=== PATIENT | male | born 1970 | race Caucasian/White ===

== ENCOUNTER 2021-11-01 03:10 | Inpatient (IN) ==
[2021-11-01] MEDS ORDERED: Naloxone 0.4 MG/ML INJ IVP PRN ×2 (05:51→06:00)
[2021-11-01 06:35] LABS: ABG Base Excess -15 mEq/L (-2 to 3); ABG HCO3 8 mEq/L (21-27); ABG Oxygen Saturation 97 % (95-98); ABG PCO2 17 mmHg (35-45); ABG PH 7.31 pH Units (7.32-7.45); ABG PO2 94 mmHg (85-104); ABG TCO2 9 mEq/L (20-26)
[2021-11-01] MEDS ORDERED: *HR* LORazepam 2 MG/ML VIAL IVP PRN (07:16)
[2021-11-01] MEDS: *HR* LORazepam 2 MG/ML VIAL IVP PRN ×6 (07:39→23:13)
[2021-11-01 09:44] LABS: Sodium, Urine 54.7 mEq/L
[2021-11-01 10:06] LABS: VBG Ionized Calcium 0.83 mmol/L (1.15-1.35)
[2021-11-01 10:09] LABS: Basophils % 0.1 %; Eosinophils % 0.1 %; Hematocrit 45.2 % (37.5-50.1); Hemoglobin 15.6 g/dL (12.9-16.9); Immature Granulocytes % 0.5 % (0-4); Lymphocytes % 11.1 %; Mean Corpuscular HGB Conc 34.5 g/dL (31.6-35.5); Mean Corpuscular Hemoglobin 28.1 pg (28.0-33.3); Mean Corpuscular Volume 81.3 fL (83.0-100.0); Monocytes # 1.3 K/mcL (0.0-1.3); Monocytes % 15.3 %; Neutrophils # 6.3 K/mcL (1.6-8.9); Platelet Count 281 K/mcL (140-400); Red Blood Count 5.56 M/mcL (4.19-5.50); Red Cell Distribution Width 15.5 % (11.5-14.5); Segmented Neutrophils % 72.9 %; White Blood Count 8.6 K/mcL (4.3-11.1)
[2021-11-01 10:26] LABS: Acetaminophen < 10 mcg/mL (10-20); Amylase 51 Units/L (29-103); INR 1.2; Lactate Dehydrogenase 107 Units/L (140-271); Lipase 117 Units/L (11-82); Prothrombin Time 12.9 Seconds (9.4-12.1); Troponin I < 0.03 ng/mL (< 0.04)
[2021-11-01 10:42] LABS: Alanine Aminotransferase 15 Units/L (7-52); Albumin 3.3 g/dL (3.5-5.7); Albumin/Globulin Ratio 1.3 (1.1-2.2); Alkaline Phosphatase 54 Units/L (34-104); Aspartate Amino Transferase 8 Units/L (13-39); Bilirubin,Direct 0.1 mg/dL (0.0-0.2); Bilirubin,Indirect 0.5 mg/dL (0.0-1.0); Bilirubin,Total 0.6 mg/dL (0.3-1.0); Blood Urea Nitrogen > 130 mg/dL (6-20); C-Reactive Protein 19 mg/L (Less than 10); Calcium 6.7 mg/dL (8.6-10.3); Carbon Dioxide 11 mEq/L (23-29); Chloride 111 mEq/L (98-107); Creatine Kinase 96 Units/L (30-223); Globulin 2.5 g/dL (2.4-3.5); Glucose 105 mg/dL (70-105); Magnesium 2.5 mg/dL (1.6-2.6); Potassium 3.7 mEq/L (3.5-5.1); Sodium 142 mEq/L (136-145); Total Protein 5.8 g/dL (6.4-8.9); Triglycerides 264 mg/dL (< 150); eGFR For African Americans 5 (> 60); eGFR For Non-African Americans 4 (> 60)
[2021-11-01] MEDS: Calcium Gluconate 1gm/50mL 1 GM/50 ML BAG IVPB SCH ×3 (11:49→13:36)
[2021-11-01 11:58] LABS: Complement C3 105 mg/dL (87-200)
[2021-11-01] MEDS: Sodium Bicarbonate 150 MEQ in D5% in Water 1,000 ML IVC SCH ×2 (13:38→19:55)
[2021-11-01 15:13] LABS: VBG Ionized Calcium 0.94 mmol/L (1.15-1.35)
[2021-11-01 15:33] LABS: Magnesium 2.3 mg/dL (1.6-2.6); Phosphorous 6.6 mg/dL (2.7-4.5); Potassium 3.6 mEq/L (3.5-5.1)
[2021-11-01] MEDS: Thiamine (B-1) 100 MG, Folic Acid 1 MG, MVI, adult with vitamin K 10 ML in 0.9 % Sodi... IVPB SCH (18:22)
[2021-11-01 23:12] LABS: VBG Ionized Calcium 0.95 mmol/L (1.15-1.35)
[2021-11-01 23:29] LABS: Calcium 7.4 mg/dL (8.6-10.3); Magnesium 2.2 mg/dL (1.6-2.6); Phosphorous 4.1 mg/dL (2.7-4.5); Potassium 3.6 mEq/L (3.5-5.1)
[2021-11-02] MEDS: Sodium Bicarbonate 150 MEQ in D5% in Water 1,000 ML IVC SCH
[2021-11-02] MEDS: *HR* LORazepam 2 MG/ML VIAL IVP PRN ×9 (01:48→20:34)
[2021-11-02 07:17] LABS: VBG Ionized Calcium 0.98 mmol/L (1.15-1.35)
[2021-11-02 07:29] LABS: Basophils % 0.1 %; Eosinophils % 0.1 %; Hematocrit 45.4 % (37.5-50.1); Hemoglobin 15.7 g/dL (12.9-16.9); Immature Granulocytes % 0.7 % (0-4); Lymphocytes # 0.7 K/mcL (0.6-4.6); Lymphocytes % 8.6 %; Mean Corpuscular HGB Conc 34.6 g/dL (31.6-35.5); Mean Corpuscular Hemoglobin 28.4 pg (28.0-33.3); Mean Corpuscular Volume 82.2 fL (83.0-100.0); Mean Platelet Volume 10.1 fL (9.4-12.4); Monocytes # 1.5 K/mcL (0.0-1.3); Monocytes % 17.4 %; Neutrophils # 6.3 K/mcL (1.6-8.9); Platelet Count 304 K/mcL (140-400); Red Blood Count 5.52 M/mcL (4.19-5.50); Red Cell Distribution Width 14.7 % (11.5-14.5); Segmented Neutrophils % 73.1 %; White Blood Count 8.6 K/mcL (4.3-11.1)
[2021-11-02] MEDS ORDERED: Famotidine 20 MG TABLET PO SCH (09:30)
[2021-11-02 10:06] LABS: Calcium 7.6 mg/dL (8.6-10.3); Magnesium 2.2 mg/dL (1.6-2.6); Phosphorous 3.8 mg/dL (2.7-4.5); Potassium 3.4 mEq/L (3.5-5.1)
[2021-11-02] MEDS ORDERED: D5% in 0.45% NACL 1,000 ML IVC SCH (10:45)
[2021-11-02] MEDS: *HR* Heparin 5,000 UNIT/ML VIAL SQ SCH ×2 (11:53→17:32)
[2021-11-02 12:01] LABS: ABG Base Excess 7 mEq/L (-2 to 3); ABG HCO3 30 mEq/L (21-27); ABG Oxygen Saturation 95 % (95-98); ABG PCO2 38 mmHg (35-45); ABG PH 7.51 pH Units (7.32-7.45); ABG PO2 68 mmHg (85-104); ABG TCO2 31 mEq/L (20-26)
[2021-11-02] MEDS: Thiamine (B-1) 100 MG, Folic Acid 1 MG, MVI, adult with vitamin K 10 ML in 0.9 % Sodi... IVPB SCH (17:32)
[2021-11-02 17:36] LABS: VBG Ionized Calcium 0.95 mmol/L (1.15-1.35)
[2021-11-02 17:41] LABS: Calcium 7.7 mg/dL (8.6-10.3); Magnesium 2.4 mg/dL (1.6-2.6); Phosphorous 2.9 mg/dL (2.7-4.5); Potassium 3.7 mEq/L (3.5-5.1)
[2021-11-02] MEDS ORDERED: Naloxone 0.4 MG/ML INJ IVP PRN (18:53)
[2021-11-02] MEDS: D5% in 0.45% NACL 1,000 ML IVC SCH (20:35)
[2021-11-02 22:37] LABS: BUN/Creatinine Ratio 40 (6-26); Blood Urea Nitrogen 59 mg/dL (6-20); Calcium 7.4 mg/dL (8.6-10.3); Carbon Dioxide 28 mEq/L (23-29); Chloride 120 mEq/L (98-107); Glucose 111 mg/dL (70-105); Osmolality,Calculated 335 (280-300); Potassium 3.4 mEq/L (3.5-5.1); Sodium 154 mEq/L (136-145); eGFR For African Americans > 60 (> 60); eGFR For Non-African Americans 51 (> 60)
[2021-11-03] MEDS: *HR* LORazepam 2 MG/ML VIAL IVP PRN ×7 (00:15→23:58)
[2021-11-03 01:33] LABS: Basophils % 0.1 %; Eosinophils # 0.1 K/mcL (0.0-0.6); Eosinophils % 0.7 %; Hematocrit 44.8 % (37.5-50.1); Hemoglobin 14.8 g/dL (12.9-16.9); Immature Granulocytes % 0.7 % (0-4); Lymphocytes # 0.9 K/mcL (0.6-4.6); Mean Corpuscular Volume 84.8 fL (83.0-100.0); Mean Platelet Volume 10.1 fL (9.4-12.4); Monocytes # 1.4 K/mcL (0.0-1.3); Monocytes % 18.6 %; Neutrophils # 5.2 K/mcL (1.6-8.9); Platelet Count 271 K/mcL (140-400); Red Blood Count 5.28 M/mcL (4.19-5.50); Red Cell Distribution Width 14.6 % (11.5-14.5); Segmented Neutrophils % 67.9 %; White Blood Count 7.7 K/mcL (4.3-11.1)
[2021-11-03 02:43] LABS: Platelet Estimate Normal (Normal); Reactive Lymphocytes Present (Not Present); Target Cells 1+ (Not Present)
[2021-11-03] MEDS: *HR* Heparin 5,000 UNIT/ML VIAL SQ SCH ×2 (05:38→17:23)
[2021-11-03] MEDS: lisinopriL 5 MG TABLET PO SCH (07:45)
[2021-11-03] MEDS: Famotidine 20 MG TABLET PO SCH (07:45)
[2021-11-03] MEDS: D5% in 0.45% NACL 1,000 ML IVC SCH (08:30)
[2021-11-03] MEDS ORDERED: lisinopriL 5 MG TABLET PO SCH (09:00)
[2021-11-03 12:07] LABS: BUN/Creatinine Ratio 32 (6-26); Blood Urea Nitrogen 37 mg/dL (6-20); Calcium 7.6 mg/dL (8.6-10.3); Carbon Dioxide 30 mEq/L (23-29); Chloride 125 mEq/L (98-107); Glucose 108 mg/dL (70-105); Osmolality,Calculated 337 (280-300); Potassium 3.6 mEq/L (3.5-5.1); Sodium 159 mEq/L (136-145); eGFR For African Americans > 60 (> 60); eGFR For Non-African Americans > 60 (> 60)
[2021-11-03] MEDS ORDERED: Thiamine (B-1) 100 MG in 0.9 % Sodium Chloride 50 ML IVPB ONE (12:19)
[2021-11-03] MEDS ORDERED: Folic Acid 1 MG in 0.9 % Sodium Chloride 50 ML IVPB ONE (12:19)
[2021-11-03] MEDS: D5% in Water 1,000 ML IVC SCH (14:10)
[2021-11-03] MEDS ORDERED: Thiamine (B-1) 100 MG, Folic Acid 1 MG, MVI, adult with vitamin K 10 ML in 0.9 % Sodi... IVPB SCH (18:00)
[2021-11-04] MEDS: D5% in Water 1,000 ML IVC SCH ×4 (02:10→23:01)
[2021-11-04 04:43] LABS: Basophils % 0.1 %; Eosinophils # 0.1 K/mcL (0.0-0.6); Eosinophils % 0.8 %; Hemoglobin 13.5 g/dL (12.9-16.9); Immature Granulocytes % 0.5 % (0-4); Lymphocytes # 1.3 K/mcL (0.6-4.6); Lymphocytes % 14.4 %; Mean Corpuscular HGB Conc 32.1 g/dL (31.6-35.5); Mean Corpuscular Hemoglobin 27.8 pg (28.0-33.3); Mean Corpuscular Volume 86.6 fL (83.0-100.0); Mean Platelet Volume 10.2 fL (9.4-12.4); Monocytes # 1.1 K/mcL (0.0-1.3); Monocytes % 11.7 %; Neutrophils # 6.7 K/mcL (1.6-8.9); Platelet Count 259 K/mcL (140-400); Red Blood Count 4.85 M/mcL (4.19-5.50); Red Cell Distribution Width 14.6 % (11.5-14.5); Segmented Neutrophils % 72.5 %; White Blood Count 9.3 K/mcL (4.3-11.1)
[2021-11-04] MEDS: *HR* Heparin 5,000 UNIT/ML VIAL SQ SCH ×2 (05:23→18:36)
[2021-11-04] MEDS: *HR* LORazepam 2 MG/ML VIAL IVP PRN (05:23)
[2021-11-04 06:36] LABS: BUN/Creatinine Ratio 22 (6-26); Blood Urea Nitrogen 22 mg/dL (6-20); Calcium 7.3 mg/dL (8.6-10.3); Carbon Dioxide 27 mEq/L (23-29); Chloride 116 mEq/L (98-107); Glucose 110 mg/dL (70-105); Magnesium 1.9 mg/dL (1.6-2.6); Osmolality,Calculated 314 (280-300); Phosphorous 1.5 mg/dL (2.7-4.5); Potassium 3.4 mEq/L (3.5-5.1); Sodium 150 mEq/L (136-145); eGFR For African Americans > 60 (> 60); eGFR For Non-African Americans > 60 (> 60)
[2021-11-04] MEDS: lisinopriL 5 MG TABLET PO SCH (09:01)
[2021-11-04] MEDS: Famotidine 20 MG TABLET PO SCH (09:01)
[2021-11-04 10:09] LABS: ANA IgG by ELISA NONE DETECTED (None Detected)
[2021-11-04 17:10] LABS: BUN/Creatinine Ratio 14 (6-26); Blood Urea Nitrogen 16 mg/dL (6-20); Calcium 7.4 mg/dL (8.6-10.3); Carbon Dioxide 28 mEq/L (23-29); Chloride 112 mEq/L (98-107); Glucose 123 mg/dL (70-105); Osmolality,Calculated 305 (280-300); Potassium 3.5 mEq/L (3.5-5.1); Sodium 146 mEq/L (136-145); eGFR For African Americans > 60 (> 60); eGFR For Non-African Americans > 60 (> 60)
[2021-11-04] MEDS: Thiamine (B-1) 100 MG TABLET PO SCH (18:36)
[2021-11-04 22:44] LABS: ANCA IFA Titer <1:20 (<1:20)
[2021-11-05 04:48] LABS: Alpha 2 Globulin (PEP) 0.98 g/dL (0.48-1.05); Beta Globulin (PEP) 0.52 g/dL (0.48-1.10)
[2021-11-05] MEDS: *HR* Heparin 5,000 UNIT/ML VIAL SQ SCH ×2 (05:32→16:54)
[2021-11-05] MEDS: Prenatal Vit/FA 1 EACH TABLET PO SCH (08:30)
[2021-11-05] MEDS: Thiamine (B-1) 100 MG TABLET PO SCH (08:30)
[2021-11-05] MEDS: lisinopriL 5 MG TABLET PO SCH (08:30)
[2021-11-05] MEDS: Famotidine 20 MG TABLET PO SCH (08:30)
[2021-11-05] MEDS: D5% in Water 1,000 ML IVC SCH (08:34)
[2021-11-05 08:46] LABS: ANCA IFA Pattern NONE DETECTED (None Detected); Serine Protease-3 Antibody 2 AU/mL (0-19)
[2021-11-05 08:49] LABS: IFE Reflexed NOT DONE
[2021-11-05] MEDS ORDERED: D5% in Water 1,000 ML IVC SCH (09:45)
[2021-11-05 09:54] LABS: Basophils % 0.2 %; Eosinophils # 0.1 K/mcL (0.0-0.6); Eosinophils % 0.7 %; Hematocrit 45.2 % (37.5-50.1); Hemoglobin 14.5 g/dL (12.9-16.9); Immature Granulocytes % 0.5 % (0-4); Lymphocytes # 1.3 K/mcL (0.6-4.6); Lymphocytes % 11.6 %; Mean Corpuscular HGB Conc 32.1 g/dL (31.6-35.5); Mean Corpuscular Hemoglobin 27.7 pg (28.0-33.3); Mean Corpuscular Volume 86.4 fL (83.0-100.0); Mean Platelet Volume 10.3 fL (9.4-12.4); Monocytes # 0.9 K/mcL (0.0-1.3); Monocytes % 8.3 %; Neutrophils # 8.7 K/mcL (1.6-8.9); Platelet Count 235 K/mcL (140-400); Red Blood Count 5.23 M/mcL (4.19-5.50); Red Cell Distribution Width 13.9 % (11.5-14.5); Segmented Neutrophils % 78.7 %
[2021-11-05 11:04] LABS: BUN/Creatinine Ratio 12 (6-26); Blood Urea Nitrogen 10 mg/dL (6-20); Calcium 7.4 mg/dL (8.6-10.3); Carbon Dioxide 28 mEq/L (23-29); Chloride 107 mEq/L (98-107); Glucose 102 mg/dL (70-105); Osmolality,Calculated 287 (280-300); Potassium 3.3 mEq/L (3.5-5.1); Sodium 139 mEq/L (136-145); eGFR For African Americans > 60 (> 60); eGFR For Non-African Americans > 60 (> 60)
[2021-11-05] MEDS ORDERED: Potassium Phosphate 44 MEQ in 0.9 % Sodium Chloride 250 ML IVPB ONE (15:00)
[2021-11-06 04:28] VITALS: BP 164/93
[2021-11-06] MEDS: *HR* Heparin 5,000 UNIT/ML VIAL SQ SCH (05:00)
[2021-11-06 06:32] LABS: Basophils % 0.2 %; Eosinophils % 0.4 %; Hematocrit 47.9 % (37.5-50.1); Hemoglobin 15.3 g/dL (12.9-16.9); Immature Granulocytes % 0.4 % (0-4); Lymphocytes # 1.3 K/mcL (0.6-4.6); Lymphocytes % 14.1 %; Mean Corpuscular HGB Conc 31.9 g/dL (31.6-35.5); Mean Corpuscular Hemoglobin 27.7 pg (28.0-33.3); Mean Corpuscular Volume 86.8 fL (83.0-100.0); Mean Platelet Volume 10.6 fL (9.4-12.4); Monocytes # 0.9 K/mcL (0.0-1.3); Monocytes % 10.1 %; Neutrophils # 6.8 K/mcL (1.6-8.9); Platelet Count 237 K/mcL (140-400); Red Blood Count 5.52 M/mcL (4.19-5.50); Red Cell Distribution Width 13.9 % (11.5-14.5); Segmented Neutrophils % 74.8 %; White Blood Count 9.1 K/mcL (4.3-11.1)
[2021-11-06 06:51] LABS: BUN/Creatinine Ratio 13 (6-26); Blood Urea Nitrogen 12 mg/dL (6-20); Calcium 7.7 mg/dL (8.6-10.3); Carbon Dioxide 29 mEq/L (23-29); Chloride 104 mEq/L (98-107); Glucose 122 mg/dL (70-105); Osmolality,Calculated 289 (280-300); Potassium 3.4 mEq/L (3.5-5.1); Sodium 139 mEq/L (136-145); eGFR For African Americans > 60 (> 60); eGFR For Non-African Americans > 60 (> 60)
[2021-11-06] MEDS: *HR* LORazepam 2 MG/ML VIAL IVP PRN (08:38)
[2021-11-06] MEDS: lisinopriL 5 MG TABLET PO SCH (08:38)
[2021-11-06] MEDS: Thiamine (B-1) 100 MG TABLET PO SCH (08:38)
[2021-11-06] MEDS: Prenatal Vit/FA 1 EACH TABLET PO SCH (08:39)
[2021-11-06] MEDS: Famotidine 20 MG TABLET PO SCH (08:39)
[2021-11-06 11:27] VITALS: PULSE 57; TEMP 97.9; O2SAT 92
== END 2021-11-06 19:30 | disposition home or self-care (01) | DRG 775 ==
LOC: ICNU → SUATTDRO 06:27 → 2NNU 11-02 18:20 → 2NENU 11-04 19:32
PROVIDERS: ADMIT Internal Medicine; ATTEND Internal Medicine